=== PATIENT | female | born 1985 | race Two or more races ===

== ENCOUNTER 2017-09-01 03:36 | Emergency (ER) | payer SELFPAY ==
[~2017-09-01] VITALS: Ht 154.9 cm; Wt 52.2 kg
[2017-09-01] MEDS ORDERED: LORAZEPAM INJ 2 MG/ML VIAL IV ONE (04:00)
[2017-09-01] MEDS ORDERED: OLANZAPINE 10 MG VIAL IM ONE ×2 (04:00→04:15)
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
[2017-09-01] MEDS ORDERED: LORAZEPAM INJ 2 MG/ML VIAL ONE (04:15)
[2017-09-01 04:25] LABS: BASOPHILS % (AUTO) 0.5 % (0.0-2.0); EOSINOPHILS # (AUTO) 0.1 /CMM (0.0-0.7); EOSINOPHILS % (AUTO) 0.8 % (0.0-6.0); HEMATOCRIT 37 % (33-45); HEMOGLOBIN 12.5 g/dL (11.5-14.8); LYMPHOCYTES % (AUTO) 35.7 % (20.0-44.0); MEAN CORPUSCULAR HEMOGLOBIN 32 PG (26.0-33.0); MEAN CORPUSCULAR HGB CONC 34 g/dl (31.0-36.0); MEAN CORPUSCULAR VOLUME 93 fL (82-100); MONOCYTES # (AUTO) 0.6 /CMM (0.1-1.30); MONOCYTES % (AUTO) 6.6 % (2.0-12.0); NEUTROPHILS # (AUTO) 4.8 /CMM (1.8-8.9); NEUTROPHILS % (AUTO) 56.4 % (43.0-81.0); PLATELET COUNT (AUTO) 196 /CMM (150-450); RED BLOOD CELL COUNT(AUTO) 3.92 MIL/uL (4.0-5.2); WHITE BLOOD COUNT (AUTO) 8.5 K/uL (4.3-11.0)
[2017-09-01 04:36] LABS: CALCIUM, SERUM 8.9 mg/dL (8.5-10.1); CARBON DIOXIDE 24 mmol/L (21-32); CHLORIDE 106 mmol/L (98-107); CREATININE 0.8 mg/dL (0.6-1.3); GLUCOSE 89 mg/dL (74-106); POTASSIUM 3.7 mmol/L (3.5-5.1); SODIUM SERUM 141 mmol/L (136-145); UREA NITROGEN, BLOOD 32 mg/dL (7-18)
[2017-09-01 04:41] LABS: ALANINE AMINOTRANSFERASE 31 U/L (12-78); ALBUMIN 3.6 g/dL (3.4-5.0); ALCOHOL, BLOOD < 3 mg/dL (0-0); ALKALINE PHOSPHATASE 67 U/L (46-116); ASPARTATE AMINOTRANSFERASE 32 U/L (15-37); BILIRUBIN,DIRECT 0.2 mg/dL (0.0-0.2); BILIRUBIN,TOTAL 1.1 mg/dL (0.2-1.0); TOTAL PROTEIN, SERUM 7.7 g/dL (6.4-8.2)
[2017-09-01 04:42] LABS: ACETAMINOPHEN < 3 ug/ml (10-30); SALICYLATE 1.2 mg/dL (2.8-20.0)
--- NOTE | 2017-09-01 05:07 | NUR ---
URINE COLLECTED VIA STRAIGHT CATH, TEENA AT BEDSIDE FEMALE WITNESS
--- NOTE | 2017-09-01 05:09 | NUR ---
CALLED LAB FOR SOLICITING FREIGHT AGENT.
--- NOTE | 2017-09-01 05:16 | NUR ---
Patient is resting comfortably in bed with eyes closed. Easily aroused.
[2017-09-01 05:26] LABS: APPEARANCE,URINE CLOUDY (CLEAR); BILIRUBIN,URINE 1+ (NEGATIVE); BLOOD, URINE 3+ Ery/uL (NEGATIVE); COLOR,URINE YELLOW (YELLOW); KETONES,URINE NEGATIVE (NEGATIVE); LEUKOCYTE ESTERASE ,URINE 2+ (NEGATIVE); NITRITE, URINE NEGATIVE (NEGATIVE); PROTEIN,URINE 2+ mg/dl (NEGATIVE); UGLUCOSE NEGATIVE (NEGATIVE); UROBILINOGEN,URINE 0.2 EU/dL (0.2)
[2017-09-01 05:44] LABS: BACTERIA,URINE Many /HPF (None Seen); RBC,URINE 51-80 /HPF (0-2); SQUAMOUS EPITHELIAL CELL,UR Moderate /HPF (None Seen); WBC,URINE 81-100 /HPF (0-3)
[2017-09-01] MEDS ORDERED: NITROFURANTOIN/NITROFURAN MAC 100 MG CAPSULE PO ONE (06:00)
--- NOTE | 2017-09-01 06:33 | NUR ---
Patient is resting comfortably in bed with eyes closed. Easily aroused. VSS. pt able to make needs known.
--- NOTE | 2017-09-01 07:03 | NUR ---
REPORT GIVEN TO [facility] FOR [facility].
[2017-09-01] MEDS ORDERED: NITROFURANTOIN/NITROFURAN MAC 100 MG CAPSULE ONE (11:40)
--- NOTE | 2017-09-01 19:17 | NUR ---
GAVE REPORT TO [facility] FOR [facility]. PT ABLE TO EAT DINNER . ALERT ORIENTED
--- NOTE | 2017-09-01 19:47 | NUR ---
IV removed. Catheter intact and site benign. Pressure and 4x4 applied to site. No bleeding noted.Patient given written and verbal discharge instructions. Patient verbalizes understanding of instructions. Patient is ambulatory with steady gait. Refuses offer of fpc placement. Patient given list of available shelters in surrounding area.
[2017-09-01 19:48] VITALS: BP 104/63
== END 2017-09-01 19:49 | disposition home or self-care (01) ==
LOC: ER 03:40 → EDBD 03:40 → ER 19:49
DX: R41.0 Disorientation, unspecified (principal); N39.0 Urinary tract infection, site not specified
CPT/HCPCS: 36415; 51701; 80048; 80076; 80305; 80329; 81001; 84703; 85025; 87077; 87086; 87186 ×2; 96372 ×2; 99284; A4606; G0480 ×2; J2060; J3490; Z7610; 81000-TC